=== PATIENT | male | born 1980 | race American Indian/Alaskan Native ===

== ENCOUNTER 2018-01-02 01:57 | Emergency (ER) | payer SELFPAY ==
[2018-01-02] MEDS ORDERED: TYLENOL ONE (02:14)
[2018-01-02] MEDS ORDERED: TYLENOL PO ONE (02:25)
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
[2018-01-02] MEDS ORDERED: BOOSTRIX IM ONE (05:04)
[2018-01-02] MEDS ORDERED: KEFLEX PO ONE (05:04)
[2018-01-02] MEDS ORDERED: XYLOCAINE 1% MPF 5 mL INFILTRATI ONE (05:05)
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
[2018-01-02] MEDS ORDERED: NACL 0.9% 1000 ML 1,000 ML IV ONE (06:50)
[2018-01-02 09:26] VITALS: BP 126/82
== END 2018-01-02 09:25 | disposition home or self-care (01) ==
LOC: ED 01:57
DX: S01.511A Laceration without foreign body of lip, initial encounter (principal); G44.319 Acute post-traumatic headache, not intractable; F10.920 Alcohol use, unspecified with intoxication, uncomplicated; F17.200 Nicotine dependence, unspecified, uncomplicated; Z86.711 Personal history of pulmonary embolism; Y04.0XXA Assault by unarmed brawl or fight, initial encounter; Y93.89 Activity, other specified; Y92.89 Other specified places as the place of occurrence of the external cause; Y99.8 Other external cause status
CPT/HCPCS: 12011; 36415; 70450; 90471; 90715; 99284; G0480; 80320; 96360

== ENCOUNTER 2018-01-02 09:31 | Emergency (ER) | payer SELFPAY ==
[2018-01-02 10:02] VITALS: BP 134/85
[2018-01-02] MEDS ORDERED: MOTRIN PO ONE (10:10)
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
== END 2018-01-02 11:01 | disposition home or self-care (01) ==
LOC: ED 09:31
DX: S93.401A Sprain of unspecified ligament of right ankle, initial encounter (principal); F17.200 Nicotine dependence, unspecified, uncomplicated; Y08.89XA Assault by other specified means, initial encounter; Y93.89 Activity, other specified; Y99.8 Other external cause status; Y92.89 Other specified places as the place of occurrence of the external cause
CPT/HCPCS: 99283